=== PATIENT | female | born 1930 | race Caucasian/White ===

== ENCOUNTER → 2017-08-26 | Outpatient (CLI) | payer MEDICARE, BC ==
[~2017-08-26] MED LIST: AMIT25; BAYE325T3 PO; DIOV160T8 PO; FERR324T4 PO; FURO1TAB93 PO; META48.53 PO; METO25TA6 PO; METR-1 PO; OMEP40CA2 PO; OXYC5 PO; POTA20IN3 PO; ROXI5TAB4 PO; WELL150T PO
--- NOTE | 2017-08-28 08:04 | RSPPFT ---
DATE OF PROCEDURE: 08/26/17 COMMENTS: VOLUMES DYNAMIC: FVC and FEV1 normal. STATIC: FRC, RV and TLC normal. FLOWS: FEV1% and FEF 25-75 normal. DIFFUSION: Moderately reduced. FLOW VOLUME LOOP: Normal configuration. IMPRESSION: Normal lung volumes and lung flows with no significant obstruction or restriction. There is a mild to moderate reduction in diffusion and clinical correlation is required.
== END ==
LOC: HRSP 08:47
PROVIDERS: ATTEND Internal Medicine Interventional Cardiology
DX: R06.00 Dyspnea, unspecified (principal); I11.9 Hypertensive heart disease without heart failure; I34.0 Nonrheumatic mitral (valve) insufficiency
CPT/HCPCS: 36600; 82805; 94010; 94726; 94729